=== PATIENT | female | born 1975 | race Caucasian/White ===

== ENCOUNTER 2022-07-14 17:50 | Emergency (ER) | payer BC ==
[~2022-07-14] VITALS: Ht 165.1 cm; Wt 109.0 kg
[2022-07-14 18:02] VITALS: BP 183/114
[2022-07-14] MEDS ORDERED: HYDROcodone/acetaminophen 10/325mg tab PO ONE ×2 (18:05→18:40)
[2022-07-14] MEDS ORDERED: ondansetron 4mg rapidly disintigrating tab PO ONE (18:40)
[2022-07-14] MEDS ORDERED: OXYC-150 PO (18:50)
[2022-07-14] MEDS ORDERED: IBUP-1986 PO (18:50)
[2022-07-14] MEDS ORDERED: LORazepam 2 mg/ml vial IM ONE (19:05)
[2022-07-14] MEDS ORDERED: morphine 10mg/ml inj. IM ONE (19:35)
== END 2022-07-14 20:54 | disposition home or self-care (01) ==
LOC: ER 17:50
DX: S42.402A Unspecified fracture of lower end of left humerus, initial encounter for closed fracture (principal); Z88.0 Allergy status to penicillin; Z88.5 Allergy status to narcotic agent; W06.XXXA Fall from bed, initial encounter; Y93.89 Activity, other specified; Y92.89 Other specified places as the place of occurrence of the external cause; Y99.8 Other external cause status
CPT/HCPCS: 29105; 73030; 73060; 73080; 96372; 99284; J2060; J2274; A4565